=== PATIENT | female | born 1970 ===

== ENCOUNTER 2019-01-21 09:39 | Emergency (ER) | payer OTHER ==
--- NOTE | 2019-01-21 10:51 | UC ---
Hand/Wrist HPI - HPI Summary HPI Summary: The patient is a 48-year-old female that injured her left wrist about one week ago when she inadvertently hit it with a 10 pound weight. She is right handed. She has some moderate bruising and swelling overlying the volar aspect of her left wrist. she has good ROM but ROM is sometimes painful - History Of Current Complaint Chief Complaint: UCUpperExtremity Stated Complaint: WRIST INJURY Time Seen by Provider: 01/21/19 10:44 Hx Obtained From: Patient Hx Last Menstrual Period: 01/02/19 Onset/Duration: Sudden Onset, Lasting Days Severity Initially: Moderate Severity Currently: Mild Pain Intensity: 2 Pain Scale Used: 0-10 Numeric Character Of Pain: Aching, Throbbing Aggravating Factor(s): Movement, Other - touch Alleviating Factor(s): Nothing Associated Signs And Symptoms: Positive: Swelling, Bruising Related History: Dominant Hand Right Hands: 1 - point tenderness and swelling 2 - fading ecchymosis - Allergies/Home Medications Allergies/Adverse Reactions: Allergies Allergy/AdvReac Type Severity Reaction Status Date / Time No Known Allergies Allergy Verified 01/21/19 10:38 Home Medications: Home Medications NK [No Home Medications Reported] 01/21/19 [History Confirmed 01/21/19] PMH/Surg Hx/FS Hx/Imm Hx Previously Healthy: Yes - Surgical History Surgical History: Yes Surgery Procedure, Year, and Place: ortho - Family History Known Family History: Positive: Hypertension, Non-Contributory - Social History Alcohol Use: None Substance Use Type: None Smoking Status (MU): Never Smoked Tobacco Review of Systems All Other Systems Reviewed And Are Negative: Yes Constitutional: Positive: Negative Skin: Positive: Bruising Eyes: Positive: Negative ENT: Positive: Negative Respiratory: Positive: Negative Cardiovascular: Positive: Negative Gastrointestinal: Positive: Negative Genitourinary: Positive: Negative Motor: Positive: Negative Neurovascular: Positive: Negative Musculoskeletal: Positive: Negative, Other: - see image Neurological: Positive: Negative Psychological: Positive: Negative Physical Exam Triage Information Reviewed: Yes Appearance: Well-Appearing, No Pain Distress, Well-Nourished Vital Signs: Initial Vital Signs Temp 98 F 01/21/19 10:35 Pulse 67 01/21/19 10:35 Resp 16 01/21/19 10:35 BP 139/86 01/21/19 10:35 Pulse Ox 100 01/21/19 10:35 Vital Signs Reviewed: Yes Eyes: Positive: Conjunctiva Clear ENT: Positive: Hearing grossly normal, Uvula midline. Negative: Nasal congestion, Nasal drainage, Trismus, Muffled voice, Hoarse voice Neck: Positive: Supple, Nontender, No Lymphadenopathy Respiratory: Positive: Lungs clear, Normal breath sounds, No respiratory distress, No accessory muscle use Cardiovascular: Positive: RRR, No Murmur, Pulses Normal Abdominal Exam: Normal Bowel Sounds: Positive: Present Musculoskeletal: Positive: ROM Intact, Other: - see image Neurological: Positive: Alert Psychological Exam: Normal Skin Exam: Normal Diagnostics - Radiology No standard instances Radiology Interpretation Completed By: Radiologist Summary of Radiographic Findings: left wrist : no fx Hand/Wrist Course/Dx - Differential Dx/Diagnosis Provider Diagnosis: Contusion of left wrist Discharge ED - Sign-Out/Discharge Documenting (check all that apply): Patient Departure All imaging exams completed and their final reports reviewed: Yes - Discharge Plan Condition: Stable Disposition: HOME Patient Education Materials: Contusion in Adults (ED) Referrals: No Primary Care Phys,NOPCP [Primary Care Provider] - Additional Instructions: ice twice daily no fracture noted I suggest recheck in 2-3 weeks if not completely back to normal take copies of XRs BP here in pre hypertensive range and should be followed up with your primary care provider - Billing Disposition and Condition Condition: STABLE Disposition: Home
== END 2019-01-21 11:37 | disposition home or self-care (01) ==
LOC: UCEAST 09:39
DX: S60.212A Contusion of left wrist, initial encounter (principal); W22.8XXA Striking against or struck by other objects, initial encounter; Y92.9 Unspecified place or not applicable
CPT/HCPCS: 99201; G0463